=== PATIENT | male | born 2005 | race Hispanic/Latino ===

== ENCOUNTER 2024-05-22 21:27 | Emergency (ER) | payer OTHER ==
[2024-05-22] MEDS ORDERED: Lidocaine 1% (PF) 30 ML VIAL ONE (22:14)
[2024-05-22] MEDS ORDERED: HYDROcodone/Acetaminophen 5/325 mg Tablet ONE (22:14)
== END 2024-05-22 23:11 | disposition home or self-care (01) ==
LOC: MADERS 21:27
DX: S62.326A Displaced fracture of shaft of fifth metacarpal bone, right hand, initial encounter for closed fracture (principal); W23.0XXA Caught, crushed, jammed, or pinched between moving objects, initial encounter; Y93.69 Activity, other involving other sports and athletics played as a team or group
CPT/HCPCS: 26605